=== PATIENT | female | born 1980 | race Hispanic/Latino ===

== ENCOUNTER 2017-07-23 10:33 | Emergency (ER) | payer SELFPAY ==
[2017-07-23] MEDS ORDERED: Lidocaine 1% 20 ML MDV ONE (10:44)
[2017-07-23] MEDS ORDERED: Lidocaine 2% w/Epinephrine 1:200K 20 ML VIAL ONE (10:44)
[2017-07-23] MEDS ORDERED: Cephalexin 250 MG CAP ONE (11:10)
[2017-07-23] MEDS ORDERED: Adacel (T-DAP) 0.5 ML VIAL ONE (11:10)
[2017-07-23] MEDS ORDERED: HYDROcodone/Acetaminophen 10/325 mg Tablet ONE (11:27)
--- NOTE | 2017-07-23 12:33 | RAD ---
LEFT FOREARM 2 VIEWS: Date: 07/23/17 HISTORY: 36-year-old female with history of left forearm injury. FINDINGS: Focal soft tissue swelling is noted on the medial dorsal aspect of the mid-distal forearm with subcut aneous swelling and fat stranding. No fracture, dislocation, or other acute process. IMPRESSION: Soft tissue swelling without fracture or dislocation. POS: [facility]
== END 2017-07-23 12:03 | disposition home or self-care (01) ==
LOC: MADERS 10:33
DX: S51.812A Laceration without foreign body of left forearm, initial encounter (principal); W01.0XXA Fall on same level from slipping, tripping and stumbling without subsequent striking against object, initial encounter
CPT/HCPCS: 12002; 90471; 90715; J2001

== ENCOUNTER 2017-07-29 08:52 | Emergency (ER) | payer SELFPAY | END 2017-07-29 09:53 | disposition home or self-care (01) | LOC: MADERS 08:52 | DX: S51.812D Laceration without foreign body of left forearm, subsequent encounter (principal); X58.XXXD Exposure to other specified factors, subsequent encounter ==